=== PATIENT | male | born 1985 | race Caucasian/White ===

== ENCOUNTER 2017-03-09 20:33 | Emergency (ER) | payer BC ==
[2017-03-09] MEDS ORDERED: NS 0.9% 1000 ML* 1,000 ML IV ONE (20:55)
[2017-03-09] MEDS ORDERED: Morphine INJ* 2 MG/ML 1 ML SYRINGE IV ONE (20:55)
--- NOTE | 2017-03-09 21:29 | ED ---
Ramon Mckeon Benjamin, scribed for Bart Tenorio MD on 03/09/17 at 2122 . Lower Extremity - HPI Summary HPI Summary: 31yo male c/o with left ankle injury earlier today. Pt was playing baseball and twisted his left ankle while sliding to the base. Pt states hearing a pop and having severe pain since. Shortly after his injury, pt also had a witnessed grand mal sz that lasted a couple of seconds. Pt reports feeling lightheaded and tired before and does not recall his episode. No prior hx of Fx or Sz. - History of Current Complaint Chief Complaint: EDSeizure Stated Complaint: SEIZURES/ANKLE INJURY Time Seen by Provider: 03/09/17 20:50 Hx Obtained From: Patient Mechanism Of Injury: Twisted Onset of Pain: Hours, Post Accident Onset/Duration: Still Present Severity Initially: Moderate Severity Currently: Moderate Pain Intensity: 7 Pain Scale Used: 0-10 Numeric Timing: Constant Location: Is Discrete @ - Left ankle Character Of Pain: Throbbing Associated Signs And Symptoms: Positive: Other - Sz Aggravating Factor(s): Standing, Ambulation, Movement, Weight Bearing Alleviating Factor(s): Rest, Ice Able to Bear Weight: No - Allergies/Home Medications Allergies/Adverse Reactions: Allergies Allergy/AdvReac Type Severity Reaction Status Date / Time No Known Allergies Allergy Verified 03/09/17 21:04 PMH/Surg Hx/FS Hx/Imm Hx Previously Healthy: Yes Infectious Disease History: No Infectious Disease History: Denies: Traveled Outside the [place] in Last 30 Days - Family History Known Family History: Negative: Cardiac Disease, Hypertension, Seizure Disorder - Social History Occupation: Employed Full-time Lives: Alone Review of Systems All Other Systems Reviewed And Are Negative: Yes Physical Exam Triage Information Reviewed: Yes Vital Signs On Initial Exam: Initial Vitals Temp Pulse Resp BP Pulse Ox 97 F 92 18 132/84 97 03/09/17 20:35 03/09/17 20:35 03/09/17 20:35 03/09/17 20:35 03/09/17 20:35 Vital Signs Reviewed: Yes Appearance: Positive: Well-Appearing, No Pain Distress Skin: Positive: Warm Head/Face: Positive: Normal Head/Face Inspection Eyes: Positive: EOMI, YENNY ENT: Positive: Normal ENT inspection Neck: Positive: Supple Respiratory/Lung Sounds: Positive: Breath Sounds Present Cardiovascular: Positive: RRR Abdomen Description: Positive: Nontender, Soft Bowel Sounds: Positive: Present Musculoskeletal: Positive: Other - lt ankle marked lat sts. no obvious deformity , nvi distally Neurological: Positive: NV Bundle Intact Distally Diagnostics - Vital Signs Vital Signs Temp Pulse Resp BP Pulse Ox 03/09/17 20:35 97 F 92 18 132/84 97 - Laboratory Lab Statement: Any lab studies that have been ordered have been reviewed, and results considered in the medical decision making process. - Radiology Ankle XR Xray Interpretation: Positive (See Comments) - IMPRESSION: 1. SOFT TISSUE SWELLING ALONG THE LATERAL MALLEOLUS. 2. BONE FRAGMENT ALONG THE MEDIAL TIBIOTALAR INTERVAL SUGGESTIVE OF AN AVULSION INJURY Radiology Interpretation Completed By: Radiologist Re-Evaluation - Re-Evaluation First Eval Comment: results d/w pt doubt true seizure prob vaso vagal, lasted few seconds , no post ictal state Lower Extremity Course/Dx - Diagnoses Provider Diagnoses: Ankle sprain Discharge - Discharge Plan Condition: Stable Disposition: HOME Patient Education Materials: Ankle Sprain (ED) Referrals: Rosa Barlow MD [Medical Doctor] - Non Staff,Doctor [Primary Care Provider] - The documentation as recorded by the Ramon nicolas Benjamin accurately reflects the service I personally performed and the decisions made by me, Bart Tenorio MD.
--- NOTE | 2017-03-09 21:42 | RAD ---
HISTORY: Left ankle pain COMPARISONS: None VIEWS: 3, Frontal, lateral, and oblique views of the left ankle FINDINGS: BONE DENSITY: Normal. BONES: There is a bone fragment along the medial tibiotalar interval JOINTS: There is no arthropathy. ALIGNMENT: There is no dislocation. SOFT TISSUES: There is extensive soft tissue swelling most pronounced along the lateral malleolus OTHER FINDINGS: None. IMPRESSION: 1. SOFT TISSUE SWELLING ALONG THE LATERAL MALLEOLUS. 2. BONE FRAGMENT ALONG THE MEDIAL TIBIOTALAR INTERVAL SUGGESTIVE OF AN AVULSION INJURY
[2017-03-09] MEDS ORDERED: HYDROcodone/ACETAMIN 5-325 MG* 1 TAB PO ONE (23:11)
[2017-03-09 23:36] VITALS: BP 121/73
== END 2017-03-09 23:34 | disposition home or self-care (01) ==
LOC: ED 20:33
DX: S93.402A Sprain of unspecified ligament of left ankle, initial encounter (principal); S99.912A Unspecified injury of left ankle, initial encounter; X50.9XXA Other and unspecified overexertion or strenuous movements or postures, initial encounter; Y93.64 Activity, baseball; Y92.9 Unspecified place or not applicable; Y99.9 Unspecified external cause status
CPT/HCPCS: 96374; 99283